=== PATIENT | female | born 1980 | race American Indian/Alaskan Native ===

== ENCOUNTER 2018-10-13 13:37 | Emergency (ER) | payer OTHER ==
--- NOTE | 2018-10-13 14:37 | Emergency Department Report ---
ED General Adult HPI - General Chief complaint: Syncope Stated complaint: SYNCOPAL Time Seen by Provider: 10/13/18 14:15 Source: EMS Mode of arrival: Stretcher Limitations: No Limitations - History of Present Illness Initial comments: Patient presents to the emergency department that she complained of syncopal episode while at work. Patient also complains of some shortness of breath but denies any chest pain. Patient also complains of feeling dizzy especially with movement. Patient denies any recent travel or leg pain. -: Sudden Severity scale (0 -10): 0 Consistency: constant Improves with: none Worsens with: none Associated Symptoms: denies other symptoms Treatments Prior to Arrival: none - Related Data Allergies Allergy/AdvReac Type Severity Reaction Status Date / Time No Known Allergies Allergy Unverified 10/13/18 15:17 ED Review of Systems ROS: Stated complaint: SYNCOPAL Other details as noted in HPI Comment: All other systems reviewed and negative Constitutional: denies: chills, fever Eyes: denies: eye pain, eye discharge, vision change ENT: denies: ear pain, throat pain Respiratory: shortness of breath. denies: cough, wheezing Cardiovascular: denies: chest pain, palpitations Endocrine: no symptoms reported Gastrointestinal: denies: abdominal pain, nausea, diarrhea Genitourinary: denies: urgency, dysuria, discharge Musculoskeletal: denies: back pain, joint swelling, arthralgia Skin: denies: rash, lesions Neurological: vertigo. denies: headache, weakness, paresthesias Psychiatric: denies: anxiety, depression Hematological/Lymphatic: denies: easy bleeding, easy bruising ED Past Medical Hx - Past Medical History Previous Medical History?: Yes Hx Hypertension: Yes ED Physical Exam - General Limitations: No Limitations General appearance: alert, in no apparent distress - Head Head exam: Present: atraumatic, normocephalic - Eye Eye exam: Present: normal appearance, PERRL, EOMI - ENT ENT exam: Present: mucous membranes moist - Neck Neck exam: Present: normal inspection - Respiratory Respiratory exam: Present: normal lung sounds bilaterally. Absent: respiratory distress - Cardiovascular Cardiovascular Exam: Present: normal rhythm, tachycardia. Absent: systolic murmur, diastolic murmur, rubs, gallop - GI/Abdominal GI/Abdominal exam: Present: soft, normal bowel sounds. Absent: distended, tenderness - Extremities Exam Extremities exam: Present: normal inspection - Back Exam Back exam: Present: normal inspection - Neurological Exam Neurological exam: Present: alert, oriented X3, CN II-XII intact, other (it was increased symptoms or rapid head movement). Absent: motor sensory deficit - Psychiatric Psychiatric exam: Present: normal affect, normal mood - Skin Skin exam: Present: warm, dry, intact, normal color. Absent: rash ED Course Vital Signs 10/13/18 10/13/18 10/13/18 13:48 13:50 13:56 Temperature Pulse Rate 106 H 106 H 104 H Respiratory 29 H 35 H 32 H Rate Blood Pressure 104/52 O2 Sat by Pulse 98 96 Oximetry 10/13/18 10/13/18 10/13/18 14:00 14:10 14:20 Temperature Pulse Rate 101 H 102 H 106 H Respiratory 33 H 34 H 22 Rate Blood Pressure 97/52 139/82 130/87 O2 Sat by Pulse 95 94 96 Oximetry 10/13/18 10/13/18 10/13/18 14:30 15:00 15:30 Temperature Pulse Rate 101 H 103 H 102 H Respiratory 33 H 34 H 27 H Rate Blood Pressure 138/83 128/78 131/78 O2 Sat by Pulse 94 94 Oximetry 10/13/18 10/13/18 10/13/18 15:49 16:00 16:30 Temperature 98.8 F Pulse Rate 108 H 110 H Respiratory 32 H 34 H Rate Blood Pressure 140/85 138/90 O2 Sat by Pulse 96 96 Oximetry 10/13/18 17:00 Temperature Pulse Rate 117 H Respiratory 37 H Rate Blood Pressure 138/90 O2 Sat by Pulse Oximetry ED Medical Decision Making - Lab Data Result diagrams: 10/13/18 14:36 10/13/18 14:36 Lab Results 10/13/18 10/13/18 10/13/18 Range/Units 14:36 14:36 14:36 WBC 9.5 (4.5-11.0) K/mm3 RBC 5.63 H (3.65-5.03) M/mm3 Hgb 12.8 (10.1-14.3) gm/dl Hct 37.5 (30.3-42.9) % MCV 67 L (79-97) fl MCH 23 L (28-32) pg MCHC 34 (30-34) % RDW 18.1 H (13.2-15.2) % Plt Count 417 (140-440) K/mm3 Lymph % (Auto) 28.9 (13.4-35.0) % [place] % (Auto) 5.1 (0.0-7.3) % Eos % (Auto) 0.5 (0.0-4.3) % Baso % (Auto) 0.6 (0.0-1.8) % Lymph # 2.8 (1.2-5.4) K/mm3 [place] # 0.5 (0.0-0.8) K/mm3 Eos # 0.0 (0.0-0.4) K/mm3 Baso # 0.1 (0.0-0.1) K/mm3 Seg Neutrophils % 64.9 (40.0-70.0) % Seg Neutrophils # 6.2 (1.8-7.7) K/mm3 PT 13.2 (12.2-14.9) Sec. INR 1.03 (0.87-1.13) Sodium 136 L (137-145) mmol/L Potassium 2.8 L* (3.6-5.0) mmol/L Chloride 95.3 L (98-107) mmol/L Carbon Dioxide 26 (22-30) mmol/L Anion Gap 18 mmol/L BUN 11 (7-17) mg/dL Creatinine 0.7 (0.7-1.2) mg/dL Estimated GFR > 60 ml/min BUN/Creatinine Ratio 16 % Glucose 202 H (65-100) mg/dL Calcium 8.9 (8.4-10.2) mg/dL Magnesium (1.7-2.3) mg/dL Total Bilirubin 0.70 (0.1-1.2) mg/dL AST 38 (5-40) units/L ALT 67 H (7-56) units/L Alkaline Phosphatase 105 (35-129) units/L Troponin T < 0.010 (0.00-0.029) ng/mL Total Protein 7.9 (6.3-8.2) g/dL Albumin 4.1 (3.9-5) g/dL Albumin/Globulin Ratio 1.1 % HCG, Qual (Negative) 10/13/18 10/13/18 10/13/18 Range/Units 14:36 14:36 16:44 WBC (4.5-11.0) K/mm3 RBC (3.65-5.03) M/mm3 Hgb (10.1-14.3) gm/dl Hct (30.3-42.9) % MCV (79-97) fl MCH (28-32) pg MCHC (30-34) % RDW (13.2-15.2) % Plt Count (140-440) K/mm3 Lymph % (Auto) (13.4-35.0) % [place] % (Auto) (0.0-7.3) % Eos % (Auto) (0.0-4.3) % Baso % (Auto) (0.0-1.8) % Lymph # (1.2-5.4) K/mm3 [place] # (0.0-0.8) K/mm3 Eos # (0.0-0.4) K/mm3 Baso # (0.0-0.1) K/mm3 Seg Neutrophils % (40.0-70.0) % Seg Neutrophils # (1.8-7.7) K/mm3 PT (12.2-14.9) Sec. INR (0.87-1.13) Sodium (137-145) mmol/L Potassium (3.6-5.0) mmol/L Chloride (98-107) mmol/L Carbon Dioxide (22-30) mmol/L Anion Gap mmol/L BUN (7-17) mg/dL Creatinine (0.7-1.2) mg/dL Estimated GFR ml/min BUN/Creatinine Ratio % Glucose (65-100) mg/dL Calcium (8.4-10.2) mg/dL Magnesium 2.10 (1.7-2.3) mg/dL Total Bilirubin (0.1-1.2) mg/dL AST (5-40) units/L ALT (7-56) units/L Alkaline Phosphatase (35-129) units/L Troponin T < 0.010 (0.00-0.029) ng/mL Total Protein (6.3-8.2) g/dL Albumin (3.9-5) g/dL Albumin/Globulin Ratio % HCG, Qual Negative (Negative) - EKG Data -: EKG Interpreted by [place] EKG shows normal: sinus rhythm Rate: tachycardia - Medical Decision Making CT of the chest was ordered for evaluation of pulmonary emboli due to the patient being tachycardic, with shortness of breath, and syncopal episode. He was ordered at 2:24 PM and at 5:24 PM the patient stated she was tired of waiting and left AMA Discussed with the patient that there was concern for pulmonary embolisms and that she sustained for a complete workup with the patient stated she was leaving anyway Critical care attestation.: If time is entered above; I have spent that time in minutes in the direct care of this critically ill patient, excluding procedure time. ED Disposition Clinical Impression: Syncope, Tachycardia Disposition: DC-07 LEFT AGAINST MED ADVICE Is pt being admited?: No Does the pt Need Aspirin: No Condition: Stable Instructions: Syncope (ED) Time of Disposition: 17:26
[2018-10-13 14:46] LABS: Basophils # (Auto) 0.1 K/mm3 (0.0-0.1); Basophils % (Auto) 0.6 % (0.0-1.8); Eosinophils % (Auto) 0.5 % (0.0-4.3); Hematocrit 37.5 % (30.3-42.9); Hemoglobin 12.8 gm/dl (10.1-14.3); Lymphocytes # (Auto) 2.8 K/mm3 (1.2-5.4); Lymphocytes % (Auto) 28.9 % (13.4-35.0); Mean Corpuscular HGB Conc 34 % (30-34); Monocytes # (Auto) 0.5 K/mm3 (0.0-0.8); Monocytes % (Auto) 5.1 % (0.0-7.3); Platelet Count 417 K/mm3 (140-440); Red Blood Count 5.63 M/mm3 (3.65-5.03); Red Cell Distribution Width 18.1 % (13.2-15.2)
[2018-10-13 14:47] LABS: Mean Corpuscular Volume 67 fl (79-97)
[2018-10-13 14:56] LABS: INR 1.03 (0.87-1.13)
[2018-10-13] MEDS ORDERED: ANTIVERT ONE (15:13)
[2018-10-13] MEDS ORDERED: ANTIVERT PO ONE (15:17)
[2018-10-13 15:19] LABS: Alanine Aminotransferase 67 units/L (7-56); Albumin 4.1 g/dL (3.9-5); BUN/Creatinine Ratio 16; Blood Urea Nitrogen 11 mg/dL (7-17); Calcium 8.9 mg/dL (8.4-10.2); Hemolysis Index 0
--- NOTE | 2018-10-13 15:27 | XRay Report ---
CHEST 1 VIEW 10/13/2018 3:09 PM INDICATION / CLINICAL INFORMATION: syncope. COMPARISON: None available. FINDINGS: SUPPORT DEVICES: None. HEART / MEDIASTINUM: No significant abnormality. LUNGS / PLEURA: No significant pulmonary or pleural abnormality. No pneumothorax. ADDITIONAL FINDINGS: No significant additional findings. IMPRESSION: 1. No acute findings. Signer Name: Maxim Lynch MD Signed: 10/13/2018 3:22 PM Workstation Name: [id number]
[2018-10-13 17:03] VITALS: BP 138/90
== END 2018-10-13 17:51 | disposition left against medical advice (07) ==
LOC: ED 13:37
DX: R55 Syncope and collapse (principal); R00.0 Tachycardia, unspecified; I10 Essential (primary) hypertension
CPT/HCPCS: 36415; 71045; 80053; 83735; 84484; 84703; 85025; 85610; 93005; 93010